=== PATIENT | male | born 1975 | race Hispanic/Latino ===

== ENCOUNTER 2016-07-20 13:32 | Inpatient (IN) | payer MEDICAID ==
[~2016-07-20] VITALS: Ht 180.3 cm; Wt 76.8 kg
[2016-07-20] VITALS (10 sets, daily range): BP systolic 103–126; BP diastolic 57–71; PULSE 65–75; RESP 12–16; O2SAT 95–100
[~2016-07-20 13:32] MED LIST: HYDROmorphone 2 mg/mL Inj ONE; Lidocaine PF 1% 30 mL Inj ONE; Propofol 10,000 mCg/mL 20 mL Inj ONE; Vancomycin Inj 1,500 MG in 0.9% Sodium Chloride 500 ML IV SCH; fentaNYL-PF 50 mCg/mL 2 mL Inj ONE
--- NOTE | 2016-07-20 15:51 | NUR ---
admitted to room [address] [facility] ED per ambulance. alert, VSS, very large swelling/abscess on left buttocks, area of erythema marked
[2016-07-20] MEDS ORDERED: no historical meds (16:02)
--- NOTE | 2016-07-20 19:20 | CONS ---
[address] [address] CONSULTATION REPORT PATIENT: KINJAL HARDWICK : 1975 MR#: [id number] ADMIT: 07/20/2016 JOB ID: [id number] DATE OF SERVICE: 07/20/2016 CHIEF COMPLAINT: This is a 41-year-old man with a left buttock abscess. This consultation was requested by Dr. Marcial of the Emergency Department at [facility] in [place]. HISTORY OF PRESENT ILLNESS: This is a 41-year-old man with a history of intramuscular heroin injection who presented to [facility] earlier today with a large fluctuant abscess of the left buttock. White blood cell count of 12. He reports that he last used heroin about one month ago. I was told by the emergency department physician at that institution that their operating rooms are closed this week and that he would require transfer for operative intervention. The abscess measured 11 cm in diameter. PAST MEDICAL HISTORY: History of MRSA abscess on the left leg. PAST SURGICAL HISTORY: Laparoscopic cholecystectomy, left shoulder surgery, incision and drainage of multiple abscesses including two previous incisions and drainages of the left buttock. MEDICATIONS: He does not take chronic medications but he had some leftover Keflex and vancomycin which he has been taking for the last several days. ALLERGIES: TORADOL, CODEINE, ZOFRAN. FAMILY HISTORY: His father had pancreatic cancer. SOCIAL HISTORY: He denies current tobacco, alcohol, or recreational drug use. He reports that he last used heroin approximately one month ago. He lives in [place] with his father. He is unemployed. REVIEW OF SYSTEMS: Eleven point review of systems is positive for left buttock pain and is otherwise negative. PHYSICAL EXAMINATION: Temperature 36.2, heart rate 65, blood pressure 103/57, respiratory rate of 16, saturation 100% on room air. General: Awake, alert, no acute distress. Head: Normocephalic. Neck: Supple. Cardiac: Regular rate and rhythm, no murmurs, rubs, or gallops. Respiratory: Clear to auscultation bilaterally. Abdomen: Soft. Musculoskeletal: The left buttock has a large fluctuant mass consistent with abscess. It is very tender. There are overlying incisions from previous incisions and drainages. Neurologic: No gross deficits. Psychiatric: Normal cognition and judgment. LABORATORY DATA: CBC at [facility] from today show white blood cell count of 12, hematocrit 27, platelets 669. Basic metabolic panel is within normal limits including creatinine 1.0 and glucose 105. IMAGING: According to the nursing notes that were sent from [facility], the patient had a CT scan. However, the report, physician note from the emergency department, and images were not sent with the patient. ASSESSMENT: A 41-year-old man with a history of IV and intramuscular drug use, as well as history of MRSA abscesses in multiple locations on his body requiring incision and drainage, who presents with an 11 cm left buttock abscess. PLAN: I recommend incision and drainage in the operating room today. Antibiotics were administered at [facility]. He will remain n.p.o. and antibiotics will be continued in the hospital. I recommend a wound care consult in the morning.
[2016-07-20] MEDS: Lactated Ringer's 1,000 ML IV SCH ×2 (19:31→19:45)
[2016-07-20] MEDS ORDERED: Ondansetron 2 mg/mL 2 mL Inj IVPUSH PRN ×2 (19:35→20:35)
[2016-07-20] MEDS ORDERED: Polyethylene Glycol (PEG) 17 Gm Powder PO PRN (19:35)
[2016-07-20] MEDS ORDERED: Alum-Mag Hydrox-Simeth 30 mL Suspension PO PRN (19:35)
--- NOTE | 2016-07-20 19:44 | PCM.HPMED ---
Subjective Date of Service Jul 20, 2016 Primary Provider: Admitting Physician: Edson Ferguson MD Primary Care Physician: Nopcp Attending Physician: Edson Ferguson MD Chief Complaint: buttock abscess History of Present Illness: 41 years old with past medical history of IVDA , MRSA skin infection, presented to [facility] with a buttock abscess. This is the 3rr time he has it he said the last time he was drain at a different hospital. He does not have an accurate recollection of where and when . In any case at [facility] CT scan a large 11 cms fluctuating abscess . Due to unavailability of surgeon at [facility] , patient is transferred here appropriate care . He has no complaint of chest pain, shortness of breath. Subjective fever, no chills. He stated the last time he use drug is a month ago or so. Review of Systems: Buttock abscess and swelling otherwise a 12 points review is negative Allergies Coded Allergies: codeine (Verified Allergy, Intermediate, hives, 07/20/16) ketorolac (Verified Allergy, Intermediate, Hives, 07/20/16) ondansetron (Verified Allergy, Intermediate, hives, 07/20/16) Home Medications None PMH IVDA, MRSA, Recurrent buttock abscess Surgical History Laparoscopic cholecystectomy, left shoulder surgery, incision and drainage of multiple abscesses including two previous incisions and drainages of the left buttock. Family History Father of pancreatic cancer Social History Hx Alcohol Use: No Hx Substance Use: No (denies all drug use) Living Arrangement: Alone Exam Vital Signs Vital Sign - Last Date Time Temp Pulse Resp B/P Pulse Ox O2 Delivery O2 Flow Rate FiO2 07/20/16 16:51 36.2 65 16 103/57 100 Room Air Exam Gen/ constitutional : Chronically ill appearing. NAD. HEENT : ISABEL Neck : Supple, trachea is midline Chest : Normal respiratory effort Lung : Clear bilaterally, no wheezing, no crackles Heart : S1S2, RR, no gallop, no murmur Abdomen : NT , benign Back : left buttock has a large fluctuant mass consistent with abscess Ext : No edema, no cyanosis Neuro : grossly intact . Lab and Diagnostics Labs Pending Assessment & Plan 1. Buttock abscess : Recurrent 2. H/o IVDA admit inpatient . Start Broad spectrum antibiotics : Zosyn and Vancomycin . Fluid expansion with NS @ 100 ml/hr for 2 days . Surgery consulted for incision and drainage . Case discussed . Consult infectious disease. This is a recurrent abscess ( X 3 per patient) . He denies using drug currently . She stated he went cold turkey 3 months ago with his heroine habit. Urine drug screen. Toradol 15 mg IV Q6h prn for pain . Avoiding narcotic may be beneficial if indeed he is of heroine . Heparin for DVT prophylaxis . CBC, CMP, PT/INR Pain Evaluation: Adequate Pain Control VTE Mechanical Devices: Intermittant Pneumatic CD Resuscitation Status: CPR: Attempt Resuscitation Time spent 55 minutes David Roblero MD Jul 20, 2016 19:44
[2016-07-20] MEDS ORDERED: Lactated Ringer's 500 ML IV PRN (19:47)
[2016-07-20] MEDS ORDERED: Lactated Ringer's 1,000 ML IV SCH (19:47)
--- NOTE | 2016-07-20 19:47 | PCM.HPANE ---
Patient Data Date of Service: Jul 20, 2016 Surgeon Admitting Provider:Edson Ferguson MD Attending Provider:Edson Ferguson MD Primary Care Physician:Nopryan Other Provider:Ervin Dailge Anesthesia Reason for Visit Abscess Left Buttock Ht/WT & BMI Height (Feet): 5 Height (Inches): 11.00 Weight (Kilograms): 75.000 Body Mass Index 23.15 Allergies Coded Allergies: codeine (Verified Allergy, Intermediate, hives, 07/20/16) ketorolac (Verified Allergy, Intermediate, Hives, 07/20/16) ondansetron (Verified Allergy, Intermediate, hives, 07/20/16) Past Anesthesia History Anesthesia History: Denies:: Anesthesia Reactions Diabetes History Hx Diabetes?: No MRSA MRSA: No Medications Hypertension Medication: No Home Meds Incl Beta Abdon: No Reported Medications [no historical meds] No Conflict Check 07/20/16 History History of ENT Problems?: No HEENT History: Denies:: Cataracts Dysphagia Glaucoma Sinus Problem Hx of Heart Problems?: No Cardiovascular History: Denies:: Cardiac Surgery Chest Pain Congestive Heart Failure Edema Heart Murmur Hypertension Pacemaker Thrombophlebitis Hx of Respiratory Problem?: No Respiratory History: Denies:: Asthma COPD Chest Surgery Dyspnea Emphysema Hemoptysis Pneumonia Tuberculosis Hx Neurologic Problems?: No Neurological History: Denies:: Alzheimer's Disease CVA Dementia Dizziness Headaches Parkinson's Disease Seizures Hx of GI Problems?: No Gastrointestinal History: Denies:: Diverticulitis Gastroesphageal Reflux Gastrointestinal Bleeding Heartburn Hepatitis (never been checked) Hiatal Hernia Rectal Bleeding Hx of Problems?: No Genitourinary History: Denies:: HX of Hemodialysis Kidney Stones Urinary Tract Infection HX of Peritoneal Dialysis: No Male Hx: Denies:: Prostate Problems Scrotal Mass Testicular Surgery Hx Musculoskeletal Problems?: No Musculoskeletal History: Denies:: Back Injury Joint Replacement Musculoskeletal Trauma Hx of Psycho/Social Problems?: No Psycho Social History: Denies:: Anxiety Bipolar Disorder Hx Depression Suicide Attempt Hx Surgeries?: Yes (see above) Hx Any Other Health Problems?: No Other History: Positive for:: Hospitalization (cholecystectomy, leg infection) Denies:: Cancer Thyroid Disease History Blood Transfusions: Positive for:: Accept Blood Products? Denies:: Blood Transfuse Reaction Blood Transfusions Hx Diabetes: No Hx Alcohol Use: NoHx Substance Use: Yes (last 1 month ago (denies all drug use to some providers). Heroin)Have You Smoked inLast 12 mo: No Stop/Bang Treated for Sleep Apnea?: No Do You Have a CPAP Machine?: No S-Snoring: Do You Snore Loudly: No T-Tired: feel tired, fatigued: No O-Obsered: Observed not breath: No P-Blood Pressure: treated: No B- Body Mass Index > 35 kg/m2: No A- Age over 50: No N- Neck Large Circumference: No G- Gender Male: Yes KARIE Total Score: 1 KARIE Risk Assessment: Low Risk, <3 Yes Risk Assessment Category Category 1A: Patient has history of documented sleep apnea, and HAS NOT received any narcotic, sedative or anesthesia administration during this stay. Category 1B: Patient has history of documented sleep apnea, and HAS received any narcotic , sedative or anesthesia administration during this stay Category 2: Patient has SUSPECTED Obstructive Sleep Apnea, and HAS received any narcotic , sedative or anesthesia administration during this stay. Category 3: Patient has SUSPECTED Obstructive Sleep Apnea and HAS NOT received narcotic, sedative or anesthesia administration during this stay. Category 4: Outpatient in Procedural Areas with known sleep apnea or who screen positive for High Risk via the STOP/BANG questionnaire. Exam Exam Vital Signs Vital Signs Date Time Temp Pulse Resp B/P Pulse Ox O2 Delivery O2 Flow Rate FiO2 07/20/16 16:51 36.2 65 16 103/57 100 Room Air General Appearance: Alert, Oriented X3, Cooperative HEENT/AIRWAY: MP 2, Neck Movement, Other (Poor dentition) Lungs: Clear to Auscultation, Normal Air Movement Heart: Regular Rate/Rhythm, Normal S1, Normal S2 Plan Impression Patient chart reviewed, patient interviewed and anesthestic plan with risks, benefits, and alternatives discussed, and informed consent obtained. NPO Status: > 8 hours ASA Physical Status: ASA2 Mod Systemic Disease Anesthetic Plan: GA Bene/Risks/Altern/Consents: Yes HP Complete Prior to Induction: Yes Fabricio Harris MD Jul 20, 2016 19:10
[2016-07-20] MEDS ORDERED: Phenylephrine 10,000 mCg/mL Inj IVPUSH PRN (19:50)
[2016-07-20] MEDS ORDERED: Dexamethasone 4 mg/mL Inj IVPUSH PRN (19:50)
[2016-07-20] MEDS ORDERED: MetoCLOpramide 5 mg/mL 2 mL Inj IVPUSH PRN ×2 (19:50→20:35)
[2016-07-20] MEDS ORDERED: EPHEDrine Sulfate 50 mg/mL Inj IVPUSH PRN (19:50)
[2016-07-20] MEDS ORDERED: Vancomycin Inj 1,500 MG in 0.9% Sodium Chloride 500 ML IV ONE (19:50)
[2016-07-20] MEDS ORDERED: fentaNYL-PF 50 mCg/mL 2 mL Inj IVPUSH PRN (19:50)
[2016-07-20] MEDS: Piperacillin-Tazo 3.375 Gm Inj 3.375 GM in Dextrose 5% Minibag Plus 50 ML IV SCH (20:00)
[2016-07-20] MEDS ORDERED: Bupivacaine 0.5%/EPI 50 mL Inj INFILTRATE ONE (20:29)
[2016-07-20] MEDS ORDERED: fentaNYL-PF 50 mCg/mL 2 mL Inj ONE (20:56)
[2016-07-20] MEDS: HYDROmorphone 1 mg/mL Inj IVPUSH PRN ×2 (21:01→21:21)
--- NOTE | 2016-07-20 21:13 | PCM.ANEP1 ---
Post Anesthesia Phase 1 PACU Phase 1 Assessment Date of Service: Jul 20, 2016 Vital Signs Vital Signs Date Time Temp Pulse Resp B/P Pulse Ox O2 Delivery O2 Flow Rate FiO2 07/20/16 21:00 75 13 125/71 98 Room Air 07/20/16 20:55 71 14 126/63 100 Simple Mask 8 07/20/16 20:50 36.4 66 15 116/64 100 Simple Mask 8 07/20/16 16:51 36.2 65 16 103/57 100 Room Air Anesthetic Administered: GA Level of Alertness: Sleepy, easy to arouse TITUS's with Equal Strength: Yes Pain: No Nausea or Vomiting: No Oxygen Delivery: Simple Mask Lungs: Normal Air Movement Fabricio Harris MD Jul 20, 2016 21:13
--- NOTE | 2016-07-20 21:19 | PCM.ANEP2 ---
Post Anesthesia Evaluation ASA/CMS Post Anesthesia Date of Service: Jul 20, 2016 VS in Patient's Normal Range?: Yes Resp Stable; Airway Patent?: Yes CV Function & Hydration Stable: Yes Mental Status Recovered?: Yes Pain control Satisfactory?: Yes N/V Control Satisfactory?: Yes Fabricio Harris MD Jul 20, 2016 21:19
--- NOTE | 2016-07-20 22:21 | PCM.CONPHA ---
Subjective Date of Service: Jul 20, 2016 buttock abscess Reason for Pharmacy Consult: Vancomycin Dosing Objective Vital Signs Date Time Temp Pulse Resp B/P Pulse Ox O2 Delivery O2 Flow Rate FiO2 07/20/16 21:35 36.7 67 16 123/66 96 Room Air 07/20/16 21:25 73 12 112/66 95 Room Air 07/20/16 21:20 36.4 70 12 110/68 96 Room Air 07/20/16 21:15 72 12 118/63 95 Room Air 07/20/16 21:13 Simple Mask 07/20/16 21:10 72 12 119/60 95 Room Air 07/20/16 21:05 71 12 120/70 95 Room Air 07/20/16 21:00 75 13 125/71 98 Room Air 07/20/16 20:55 71 14 126/63 100 Simple Mask 8 07/20/16 20:50 36.4 66 15 116/64 100 Simple Mask 8 07/20/16 16:51 36.2 65 16 103/57 100 Room Air Weight (Kilograms): 75.000 Height (Feet): 5 Height (Inches): 11.00 Assessment/Plan Assessment/Plan Vanco per Rx Indication: cellulitis, Hx of IVDA/MRSA Goal Trough : 15-20; LD 1500mg, follow by 1500mg q12h Vd 56; ePeak 38.3, eTrough 15.2 @ SS 1st trough to be drawn before the 4th dose, on 07/22 Srinivas Rodriguez PharmD Jul 20, 2016 22:21
--- NOTE | 2016-07-20 22:26 | OP ---
[address] [address] OPERATIVE REPORT PATIENT: KINJAL HARDWICK : 1975 MR#: [id number] ADMIT: 07/20/2016 JOB ID: [id number] DATE OF SURGERY: 07/20/2016 PREOPERATIVE DIAGNOSIS(ES): Left buttock abscess. POSTOPERATIVE DIAGNOSIS(ES): Deep intramuscular left buttock abscess. PROCEDURE PERFORMED: Incision and drainage of deep intramuscular buttock abscess. SURGEON: Billie Peng MD. BROKERAGE MANAGER: DIANA Chavez. HISTORY OF PRESENT ILLNESS: This is a 41-year-old man with a history of heroin use with previous MRSA infections of the subcutaneous tissue who presented to an outside hospital with a large fluctuant left buttock abscess. There was no operating room availability there, so he was transferred to this facility. White blood cell count was 12. He was consented for incision and drainage. FINDINGS: Large intramuscular buttock abscess, 12 x 12 cm in size. It was filled with purulent fluid and blood clots. A culture was sent. DESCRIPTION OF PROCEDURE: The patient was brought to the operating room and placed in supine position. General anesthesia was induced. He was repositioned into the modified right lateral decubitus. The operative field was prepped and draped in sterile fashion. A pause was performed to confirm the correct patient, procedure, site, and side. In the midportion of the left buttock was a macerated area of skin. This was opened and copious purulent fluid spilled out. The specimen was sent for culture. The cavity was explored and found to be approximately 12 cm x 12 cm in size. Due to the large size which encompassed the majority of the skin of the buttock, the decision was made to place Peterson drains for drainage rather than open the entire wound. Because the area of macerated skin was in the center of the wound, three Newcomb drains were placed extruding from this wound in a triangular fashion, the 1st directly lateral, the 2nd superomedial, and the 3rd inferomedial. 1 inch Newcomb drains were used. There were threaded through the center wound in the lateral/medial wounds and each was tied to itself with an interrupted nylon stitch. The abscess cavity was copiously irrigated with normal saline. 0.5% Marcaine with epinephrine was injected at all incision sites. Sterile dressing was placed. The patient was awakened from general anesthesia and taken to the postoperative care unit in good condition. SPECIMENS: Purulent fluid sent for culture. COMPLICATIONS: None. ESTIMATED BLOOD LOSS: 20 mL.
[2016-07-20] MEDS: Dextrose 5% Lactated Ringer's 1,000 ML IV SCH (22:31)
[2016-07-21 00:04] LABS: BASOPHILS % (AUTO) 0.2 % (0-3); EOSINOPHILS % (AUTO) 0.5 % (0-5); MONOCYTES % (AUTO) 3.5 % (4-12); Mean Corpuscular Hemoglobin 19.7 pg (27.0-35.0); Mean Corpuscular Volume 65.9 fL (81-100); NEUTROPHILS % (AUTO) 74.2 % (40-74); Platelet Count 661 bil/L (150-400)
[2016-07-21 00:27] LABS: INR 1.01 ratio
[2016-07-21 00:30] VITALS: BP 109/65; PULSE 73; RESP 16; O2SAT 99
[2016-07-21] MEDS: Heparin 5,000 Unit/mL Inj SUBQ SCH ×3 (00:30→16:48)
[2016-07-21] MEDS: Acetaminophen IV 1,000 MG in IV Premix 1 EACH IV SCH ×4 (02:30→20:30)
[2016-07-21] MEDS: Piperacillin-Tazo 3.375 Gm Inj 3.375 GM in Dextrose 5% Minibag Plus 50 ML IV SCH ×3 (04:00→20:37)
[2016-07-21] MEDS: Dextrose 5% Lactated Ringer's 1,000 ML IV SCH ×2 (04:32→13:48)
[2016-07-21] MEDS: Lactated Ringer's 1,000 ML IV SCH (05:31)
[2016-07-21 05:46] VITALS: BP 111/64; PULSE 70; RESP 16; O2SAT 97
--- NOTE | 2016-07-21 05:54 | NUR ---
IV access/ activity Patient IV infiltrated after 160ml of Vancomycin, unable to obtain IV access at this time msg left for IV as the patient states doppler often required. Pain poorly managed with current pain regiment. Tolerating diet well, denies CP, SOB, Abdominal Discomfort, and Nausea.
--- NOTE | 2016-07-21 08:25 | PCM.PNSURG ---
Subjective Visit Information: Reason for Visit Abscess Left Buttock Surgery/Surgery Date Post-Op Day # Date of Admission: Jul 20, 2016 at 15:49 Hospital Day # Subjective: Stable overnight. c/o pain. Drainage from wound is serosanguinous. Erythema improving. Objective Vital Sign- Last 8 Hours Date Time Temp Pulse Resp B/P Pulse Ox O2 Delivery O2 Flow Rate FiO2 07/21/16 05:46 36.5 70 16 111/64 97 Room Air 07/21/16 00:30 36.3 73 16 109/65 99 Room Air Intake and Output- Last 8 Hour 07/21/16 Cumulative From/Thru 07:00 07/20/16 16:19 - 07/21/16 06:07 Intake Total 1836 ml 2486 ml Output Total 1550 ml 2250 ml Balance 286 ml 236 ml Intake Oral 1673 ml 1673 ml IV Total 163 ml 813 ml Output Urine Total 1550 ml 2250 ml # Bowel Movements 0 0 General: Alert, Oriented X3, Cooperative, Mild Distress Extremities: Other (L buttock with [address], no longer fluctuant, decreasing erythema.) Result Diagram: 07/20/16 2340 07/20/16 2340 Assessment & Plan Impression POD1 I&D left buttock abscess in setting of h/o MRSA and h/o IVDU Problems: Plan Continue abx, await culture results. OK to have a general diet. F/U with me in 2 weeks for Roverto drain removal Resuscitation Status: CPR: Attempt Resuscitation Billie Peng MD Jul 21, 2016 08:25
[2016-07-21] MEDS: Vancomycin Dose per Pharmacist XX SCH (08:30)
[2016-07-21 09:23] VITALS: BP 96/60; PULSE 72; RESP 18; O2SAT 98
[2016-07-21 09:46] LABS: BASOPHILS % (AUTO) 0.2 % (0-3); EOSINOPHILS % (AUTO) 1.3 % (0-5); MONOCYTES % (AUTO) 4.6 % (4-12); Mean Corpuscular Hemoglobin 19.6 pg (27.0-35.0); Mean Corpuscular Volume 65.7 fL (81-100); NEUTROPHILS % (AUTO) 67.3 % (40-74); Platelet Count 704 bil/L (150-400)
[2016-07-21 10:17] LABS: Magnesium 2.2 mg/dL (1.6-2.6); Phosphorus 3.2 mg/dL (2.5-4.9)
--- NOTE | 2016-07-21 11:04 | PCM.PHAPRO ---
Progress buttock abscess VANCOMYCIN DOSING PER PHARMACY Note: Was told by RN that IV infiltrated last night, so initial dose of vancomycin was barely given. P: Will keep the same time since new IV was just started and next scheduled dose is due at 11:30 this morning. Retiming trough to 07/22 @2200 before the now adjusted 4th dose Pharmacy will continue to follow, thanks! Princess Nicole PharmD Jul 21, 2016 11:04
[2016-07-21] MEDS: Vancomycin Inj 1,500 MG in 0.9% Sodium Chloride 500 ML IV SCH (11:16)
--- NOTE | 2016-07-21 11:59 | CONS ---
[address] [address] CONSULTATION REPORT PATIENT: KINJAL HARDWICK : 1975 MR#: [id number] ADMIT: 07/21/2016 JOB ID: [id number] DATE OF SERVICE: 07/21/2016 INFECTIOUS DISEASE CONSULT: I thank Dr. Roblero for this timely consult. REASON FOR CONSULTATION: Large left buttock abscess in a patient who injects intramuscular heroin. HISTORY OF THE PRESENT ILLNESS: The patient is a 41-year-old gentleman with a relatively uncomplicated medical history, except for a history of nephrolithiasis, chronic left shoulder pain and history of recurrent abscesses. The patient relates that a year or two ago he was receiving opiate pain meds for his left shoulder pain and other issues and became addicted to the opiates and when could not get additional doses of oral opiates, he switched to injectable narcotics. Initially, he used intravenous narcotics but was unable to find veins and has now switched to IM injections. This has led him to at least three encounters with the hospital system in the last few months for abscesses due to injections of IM heroin. He has been hospitalized at [facility], as well as [facility]. He has been seen and undergone incision and drainage at [facility], as well as at [facility], and now this admission. This admission started yesterday when the patient was seen at [facility] with a multi-week history of progressive left buttock swelling, pain and tenderness associated with night sweats. When he was seen at [facility], they correctly assumed he had a large abscess and got a CT, which showed about a 12 cm left buttock abscess. Because there was no surgeon available to deal with the problem there, he was transferred here. Yesterday evening, Dr. Peng took him to the operating room for an extensive drainage procedure. She placed three Peterson drains in this large abscess and drained copious amounts of purulent fluid, which she sent to the lab. This morning we see the patient, and he is reporting that his pain is somewhat diminished already just by virtue of the drains but he still has considerable pain with the movement or manipulation of the left buttock or the dressing placed on the top of it. As noted, he really did not have much in the way of constitutional symptoms despite 2-4 weeks of increasing pain in that area. He does report some night sweats but no fevers or chills. Denies any weight loss. Denies any other significant constitutional symptoms and specifically, no pulmonary or GI symptoms. He reports he does not clean the skin at all before he does IM injections but he denies licking the needles. PAST MEDICAL HISTORY: 1. 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 2. Nephrolithiasis. 3. Left shoulder trauma from football as a teenager with continued pain. SOCIAL HISTORY: The patient is unemployed at this point. He lives in [place]. He does inject IM heroin, though he said he has basically quit and just relapsed once about a month ago. He denies cigarette smoking or alcohol consumption. FAMILY HISTORY: Of interest, his sister is also a parenteral heroin user and has a history of multiple abscesses. There is no family history in first-degree relatives of tuberculosis. REVIEW OF SYSTEMS: Done. The patient states he has no headache, no visual change, no sore throat, no trouble swallowing. No plaque in the mouth. No cough, shortness of breath, chest pain, nausea, vomiting, diarrhea, dysuria, or pain in any extremity. Remainder of the review of systems is completely negative. PHYSICAL EXAMINATION: Reveals an afebrile gentleman. Temperature 36.8, pulse 72, respiratory rate 18, blood pressure 96/60, saturating 98% on room air. He is awake, alert, and in no obvious distress. His mental status seems quite clear. Head without trauma or temporal wasting. Eyes without conjunctivitis. Oral cavity without thrush, hairy leukoplakia, or pharyngitis. Neck without adenopathy, and it is supple. Lungs: Clear. Cardiac tones: Regular rate and rhythm, without murmur. Abdomen soft and nontender without organomegaly or ascites. No suprapubic fullness. No Crook catheter is present. The patient was rolled over and carefully examined with the wound management nurse. His spine appears normal. The left buttock is discolored with a purplish discoloration, and three Peterson drains are present. Serosanguineous drainage is seen on the dressings over the Roundup drain. The remainder of the lower extremities is unremarkable. There is no cellulitis and no edema, and there is good perfusion of the extremities. Neurologically, the patient is intact. No skin rash is seen. The remainder of the exam is unremarkable. LABORATORIES: Include a white count yesterday of 11,000, now 9900. Normal diff. Creatinine 0.62. LFT normal. Procalcitonin less than 0.1. Blood cultures are pending from the ED last night. They are negative. We did call [facility] when he was seen there yesterday. No blood cultures or any cultures were obtained. The intraoperative culture obtained yesterday evening by Dr. Peng in the operating room had many polys, a few gram-positive cocci and a few gram-variable rods. I spoke to the [facility] this morning who indicated there is still no growth on the plates but, of course, they are only 12 hours old. IMAGING: No imaging was done here but we reviewed the imaging from [facility] which shows a 12 cm left buttock abscess. IMPRESSION: This is an intramuscular heroin user who presents with about a 2-4 week history of gradual swelling and pain in his left buttock but without much in the way of constitutional symptoms. He underwent incision and drainage last night, and a great deal of purulent fluid was obtained and sent for cultures. One would think this would be a fairly indolent organism and so, we await with interest the results of the cultures. Given the chronicity of this, one would think the patient would have fared worse if it was a virulent organism but it is worth noting he had some Keflex at home from a prior admission which he was taking on an intermittent basis which may have slowed up the progression of this if it was due to a staphylococcal or streptococcal species. RECOMMENDATIONS: 1. I agree with the vancomycin and Zosyn he is receiving now, though we will try and narrow the antibiotics down quickly. 2. The patient has a peripheral IV in his right hand, and I absolutely would not place a PICC or any central line in this patient, as I think we will be able to treat this abscess either with oral antibiotics or with long-acting IV antibiotics such as dalbavancin. 3. We await the culture of the wound, as well as the maturation of the blood cultures from this facility. 4. The patient's HIV and hep C should be checked, and we have gone ahead and ordered these tests, and told the patient we will be checking them. 5. We will continue to follow this interesting patient with you.
--- NOTE | 2016-07-21 12:46 | NUR ---
Wound Care Wound evaluation order received, pt seen at bedside with Dr Beard from ID service. 41 yo IV drug user who had his left buttock surgically I&D'd by Dr Peng yesterday. Now presents with 4 stab incisions that are approx 2 cm in length and have 3 roverto drains looped through them to facilitate drainage of a large subcutaneous abscess at his left lateral buttock, drainage is serosanguinous and moderate, no purulence is noted and a absorbent dressing is replaced over the wounds and drain then taped in place. Will recheck on this patient tomorrow, pt lives in [place] so may not be agreeable to follow up appointment at wound center but will discuss with patient prior to discharge.
[2016-07-21 13:59] VITALS: BP 111/64; PULSE 70; RESP 18; O2SAT 98
--- NOTE | 2016-07-21 14:34 | PCM.PNMED ---
Subjective Date of Service Jul 21, 2016 Subjective Patient complains of pain at surgical site. Afebrile. Status post incision and drainage. Exam Vital Signs Vital Sign - Last Date Time Temp Pulse Resp B/P Pulse Ox O2 Delivery O2 Flow Rate FiO2 07/21/16 13:59 36.8 70 18 111/64 98 Room Air 07/20/16 20:55 8 Intake and Output 07/20/16 07/20/16 07/21/16 Cumulative From/Thru 15:00 23:00 07:00 07/20/16 16:19 - 07/21/16 06:07 Intake Total 650 ml 1836 ml 2486 ml Output Total 700 ml 1550 ml 2250 ml Balance -50 ml 286 ml 236 ml Intake Oral 1673 ml 1673 ml IV Total 650 ml 163 ml 813 ml Output Urine Total 700 ml 1550 ml 2250 ml # Bowel Movements 0 0 Exam Gen/ constitutional : Chronically ill appearing. NAD. HEENT : ISABEL Neck : Supple, trachea is midline Chest : Normal respiratory effort Lung : Clear bilaterally, no wheezing, no crackles Heart : S1S2, RR, no gallop, no murmur Abdomen : NT , benign Back : left buttock status post I&D, cleanly dressed Ext : No edema, no cyanosis Neuro : grossly intact . IVs and Medications Medications Reviewed: Medications were reviewed in detail Lab and Diagnostics Result Diagram: 07/21/16 0935 07/21/16 0935 Assessment & Plan 1. Left Buttock abscess : Recurrent . Status post I&D on 07/20 -Continue Broad spectrum antibiotics : Zosyn and Vancomycin . -Plan to narrow down antibiotics quickly -Pain control with Oxycodone by mouth -ID Dr Beard and surgery Dr dyer on board -Discontinued IV fluids today. 2. H/o IVDA -HIV, HCV ordered by ID Disposition: Pending clinical course VTE Mechanical Devices: Intermittant Pneumatic CD Resuscitation Status: CPR: Attempt Resuscitation Alok Bray MD Jul 21, 2016 14:34
--- NOTE | 2016-07-21 15:56 | NUR ---
WOUND/PAIN/ACTIVITY Dressing to L buttock was removed with Dr. Peng this am. Erythema and 3 Peterson drains present. Replaced with 2 ABD pads and hypafix tape. Previous dressing was saturated with serosanguineous drainage. Patient reports pain is 9/10 to L buttock and he was unable to sleep or get comfortable last night. Administered oxycodone 10mg Q4H for pain control. Also received order for sleeping pill to help with sleep for tonight. Patient ambulating into bathroom independently with IV pole. Continue to monitor.
--- NOTE | 2016-07-21 16:33 | NUR ---
Mannequin Decorator met with patient at bedside. Patient was in agreement with meeting with [facility] and patient sign EJ. Mannequin Decorator notified [facility] patient account representative and she is meeting with the patient at bedside. SW will continue to follow and assist. Patient confirmed that he lives in [place] with his father and accepted Advance Directive [place] from Mannequin Decorator. Madelaine Dial LMSW
[2016-07-21 21:39] VITALS: BP 116/67; PULSE 66; RESP 18; O2SAT 98
[2016-07-22] MEDS: Heparin 5,000 Unit/mL Inj SUBQ SCH ×3 (00:30→16:34)
[2016-07-22] MEDS: Vancomycin Inj 1,500 MG in 0.9% Sodium Chloride 500 ML IV SCH ×2 (01:35→12:12)
[2016-07-22] MEDS: Acetaminophen IV 1,000 MG in IV Premix 1 EACH IV SCH (03:10)
[2016-07-22] MEDS: Piperacillin-Tazo 3.375 Gm Inj 3.375 GM in Dextrose 5% Minibag Plus 50 ML IV SCH ×2 (04:14→16:34)
[2016-07-22 04:35] VITALS: BP 120/74; PULSE 84; RESP 16; O2SAT 100
--- NOTE | 2016-07-22 04:44 | NUR ---
Heparin Patient refused 0030 Heparin dose, stating he would rather receive dose when awake. This RN explain the benefits and possible side effects of refusing dose. Patient accepting of this.
[2016-07-22] MEDS: Vancomycin Dose per Pharmacist XX SCH (08:23)
[2016-07-22 12:25] VITALS: BP 108/74; PULSE 70; RESP 16; O2SAT 100
--- NOTE | 2016-07-22 15:05 | PCM.PNMED ---
Subjective Date of Service Jul 22, 2016 Subjective Pain controlled, afebrile Exam Vital Signs Vital Sign - Last Date Time Temp Pulse Resp B/P Pulse Ox O2 Delivery O2 Flow Rate FiO2 07/22/16 12:25 36.7 70 16 108/74 100 Room Air 07/20/16 20:55 8 Intake and Output 07/21/16 07/21/16 07/22/16 Cumulative From/Thru 15:00 23:00 07:00 07/20/16 16:19 - 07/22/16 04:40 Intake Total 1543 ml 400 ml 4429 ml Output Total 1250 ml 1300 ml 4800 ml Balance 293 ml -900 ml -371 ml Intake Oral 806 ml 400 ml 2879 ml IV Total 737 ml 1550 ml Output Urine Total 1250 ml 1300 ml 4800 ml # Bowel Movements 0 0 Exam Gen/ constitutional : Chronically ill appearing. NAD. HEENT : ISABEL Neck : Supple, trachea is midline Chest : Normal respiratory effort Lung : Clear bilaterally, no wheezing, no crackles Heart : S1S2, RR, no gallop, no murmur Abdomen : NT , benign Back : left buttock status post I&D, cleanly dressed Ext : No edema, no cyanosis Neuro : grossly intact . IVs and Medications Medications Reviewed: Medications were reviewed in detail Lab and Diagnostics Result Diagram: 07/21/16 0907/21/16 0935 Microbiology Microbiology GAGE GS (GRAM STAIN) Final 07/20/16-2154 GRAM STAIN RESULT MANY POLYS FEW GRAM POS COCCI FEW GRAM VARIABLE RODS GAGE CULT AEROBIC Preliminary 07/22/16-1116 Requires further isolation before workup. ANAEROBIC CULTURE Preliminary 07/22/16-1011 No ANAEROBES recovered at 48 hours hold for futher observation Assessment & Plan 1. Left Buttock abscess : Recurrent . Status post I&D on 07/20 -Continue Broad spectrum antibiotics awaiting culture and sensitivity : Zosyn and Vancomycin . -Blood culture negative 2, wound Gram stain gram-positive cocci and gram variable rods,MRSA nares negative -Plan to narrow down antibiotics quickly -Pain control with Oxycodone by mouth -ID Dr Beard and surgery Dr dyer on board -Discontinued IV fluids today. 2. H/o IVDA -HIV, HCV ordered by ID Disposition: Pending clinical course VTE Mechanical Devices: Intermittant Pneumatic CD Resuscitation Status: CPR: Attempt Resuscitation Asa,Alok MD Jul 22, 2016 15:05
--- NOTE | 2016-07-22 15:15 | NUR ---
PAIN/ACTIVITY Patient states pain is better controlled with current pain regimen. Up out of bed ambulating in room and in hallway. Dressing to L buttock was changed. Wound has less drainage than yesterday and skin surrounding roverto drains is normal color of skin, no longer red. Care continues.
--- NOTE | 2016-07-22 18:16 | PCM.PNSURG ---
Subjective Visit Information: Reason for Visit Abscess Left Buttock Surgery/Surgery Date Post-Op Day # Date of Admission: Jul 20, 2016 at 15:49 Hospital Day # Subjective: Stable. Pain is improving. Objective Vital Sign- Last 8 Hours Date Time Temp Pulse Resp B/P Pulse Ox O2 Delivery O2 Flow Rate FiO2 07/22/16 12:25 36.7 70 16 108/74 100 Room Air Intake and Output- Last 8 Hour 07/22/16 Cumulative From/Thru 07:00 07/20/16 16:19 - 07/22/16 04:40 Intake Total 400 ml 4429 ml Output Total 1300 ml 4800 ml Balance -900 ml -371 ml Intake Oral 400 ml 2879 ml IV Total 1550 ml Output Urine Total 1300 ml 4800 ml # Bowel Movements 0 0 General: Alert, Oriented X3, Cooperative, No Acute Distress Extremities: Other (L buttock with several roverto drains in place. ABD pads have purulent-serous fluid on them. Erythema substantially improved.) Result Diagram: 07/21/16 0935 07/21/16 0935 Assessment & Plan Impression 41yom s/p I&D L buttock abscess 07/20/16. Doing well. Problems: Plan Continue antibiotics. Dressing changes at least BID. Follow up in my clinic 2-3 weeks after 07/20/16 for reassessment and possible drain removal. Resuscitation Status: CPR: Attempt Resuscitation Billie Peng MD Jul 22, 2016 18:16
[2016-07-22 20:45] VITALS: BP 113/61; PULSE 75; RESP 20; O2SAT 98
[2016-07-22] MEDS: Amoxicillin-Clav 875-125 mg Tablet PO SCH (22:09)
[2016-07-22] MEDS ORDERED: Vancomycin Serum Trough XX ONE (23:00)
[2016-07-23] MEDS: Heparin 5,000 Unit/mL Inj SUBQ SCH ×2 (00:30→09:46)
[2016-07-23 05:01] VITALS: BP 116/71; PULSE 60; RESP 16; O2SAT 97
--- NOTE | 2016-07-23 05:33 | NUR ---
Pain Patient accepting of PO ABX medications, states that he hopes to be able to go home. Pain managed well, able to rest through out shift. Denies CP, SOB, Abdominal discomfort. Refused late night dose of heparin. Patient also voiced concern about newly diagnosis of Hep C. This RN obtain reading material. This RN also read material to patient as he complained of inability to read small print. Main focus was prevention of spreading disease.
[2016-07-23] MEDS: Amoxicillin-Clav 875-125 mg Tablet PO SCH (09:45)
[2016-07-23] MEDS ORDERED: [UNRECOGNIZED DRUG - OTHER] XX SCH (10:05)
[2016-07-23] MEDS ORDERED: [UNRECOGNIZED DRUG - OTHER] XX ONE (10:31)
[2016-07-23] MEDS ORDERED: Dalbavancin Inj 1,500 MG in Dextrose 5% 500 ML IV ONE (10:35)
--- NOTE | 2016-07-23 11:24 | PCM.DIMED ---
Discharge Instructions Date of Service Jul 23, 2016 Dates of Hospitalization Jul 20, 2016 at 15:49 Discharge Diagnosis Discharge Diagnosis 1. Left Buttock abscess : Recurrent . Status post I&D on 07/20 2. H/o IVDA Diet No restrictions Activity No restrictions, Other (as tolerated ) Patient Instructions You were hospitalized due to left buttock abscess. You underwent incision and drainage on 07/20/16. You had been treated with IV antibiotics. You are given Dalvance ( long-acting antibiotic). Please follow-up with surgeon Dr Peng in 2 weeks for removal of drain. Please follow-up as wound care for dressing change daily. Follow-up plan Please follow-up with in 2 weeks . Please follow-up with PCP 1-2 weeks. Follow-up with PCP in: 1 week Provider: Billie Peng MD Follow-up in: 2 weeks Mid-level Provider (F9): [facility] Follow-up with Mid-level in: 1 week (2 days ) Alok Bray MD Jul 23, 2016 11:24
[2016-07-23] MEDS ORDERED: OXYC-474 PO (11:25)
--- NOTE | 2016-07-23 11:26 | NUR ---
Social Work- Readiness for Discharge Data: EMR reviewed. Pt is on day3 of hospitalization for abscess left buttock per H&P. Pt is not medically stable, anticipate discharge later today. Wound Care continues to follow patient. Pt to discharge on oral abx. SW followed up with pt regarding discharge plan. Pt informed SW of questions related to [facility] Medicaid coverage, SW encouraged pt to follow up regarding this after discharge as it is the weekend. Pt's father to transport to additional follow up appointments. Pt to discharge home with his father to transport via POV. No anticipated discharge needs. SW will continue to follow. Assessment: [place]. Plan: Pt to discharge home with his father to transport via POV. No anticipated discharge needs. SW will continue to follow. PATRICK Dubose
--- NOTE | 2016-07-23 11:52 | NUR ---
IV attempts This RN attempted two times on the right arm and was not able to locate any other veins big enough to attempt an IV on his left arm and nothing on the feet. Nii Henson RN Addendum: 07/23/16 at 1157 by SLIM HENSON RN I informed the patients RN of my findings and she called Dr. Bray and reported my findings. Nii Henson RN
--- NOTE | 2016-07-23 13:28 | NUR ---
Social Work- Discharge Data: EMR reviewed. Pt is on day 3 of hospitalization for abscess left buttock per H&P. Pt to discharge today. Pt to discharge on oral abx. Pt to discharge home with his father to transport via POV. No discharge needs. Assessment: [place]. Plan: Pt to discharge home with his father to transport via POV. No discharge needs. PATRICK Dubose
--- NOTE | 2016-07-23 14:17 | PCM.EDPN ---
ED Note Date of Service Jul 23, 2016 I was asked to come to the patient's bedside this morning in order to place an external jugular venous catheter. Basic and standard clean technique was used. I attempted bilateral external jugular venous catheters unsuccessfully. Keegan Burroughs DO Jul 23, 2016 14:17
--- NOTE | 2016-07-23 14:38 | PCM.DC.MED ---
Discharge Summary Date of Service Jul 23, 2016 Dates of Hospitalization Date of Hospital Admission Jul 20, 2016 at 15:49 Date of Discharge: Jul 23, 2016 Providers: Admitting Physician: Edson Ferguson MD Primary Care Physician: Nopcp Attending Physician: Edson Ferguson MD Diagnosis at Time of Discharge Diagnosis at Time of Discharge 1. Left Buttock abscess : Recurrent . Status post I&D on 07/20 2. H/o IVDA Consultations ID Dr Peng ID Dr Beard Procedures Invasive Procedures DATE OF SURGERY: 07/20/2016 PREOPERATIVE DIAGNOSIS(ES): Left buttock abscess. POSTOPERATIVE DIAGNOSIS(ES): Deep intramuscular left buttock abscess. PROCEDURE PERFORMED: Incision and drainage of deep intramuscular buttock abscess. SURGEON: Billie Peng MD. CHIEF OF INTERNAL MEDICINE: DIANA Chavez. HISTORY OF PRESENT ILLNESS: This is a 41-year-old man with a history of heroin use with previous MRSA infections of the subcutaneous tissue who presented to an outside hospital with a large fluctuant left buttock abscess. There was no operating room availability there, so he was transferred to this facility. White blood cell count was 12. He was consented for incision and drainage. FINDINGS: Large intramuscular buttock abscess, 12 x 12 cm in size. It was filled with purulent fluid and blood clots. A culture was sent. DESCRIPTION OF PROCEDURE: The patient was brought to the operating room and placed in supine position. General anesthesia was induced. He was repositioned into the modified right lateral decubitus. The operative field was prepped and draped in sterile fashion. A pause was performed to confirm the correct patient, procedure, site, and side. In the midportion of the left buttock was a macerated area of skin. This was opened and copious purulent fluid spilled out. The specimen was sent for culture. The cavity was explored and found to be approximately 12 cm x 12 cm in size. Due to the large size which encompassed the majority of the skin of the buttock, the decision was made to place [place] drains for drainage rather than open the entire wound. Because the area of macerated skin was in the center of the wound, three [place] drains were placed extruding from this wound in a triangular fashion, the 1st directly lateral, the 2nd superomedial, and the 3rd inferomedial. 1 inch [place] drains were used. There were threaded through the center wound in the lateral/medial wounds and each was tied to itself with an interrupted nylon stitch. The abscess cavity was copiously irrigated with normal saline. 0.5% Marcaine with epinephrine was injected at all incision sites. Sterile dressing was placed. The patient was awakened from general anesthesia and taken to the postoperative care unit in good condition. SPECIMENS: Purulent fluid sent for culture. COMPLICATIONS: None. ESTIMATED BLOOD LOSS: 20 mL. Billie Peng MD 07/20/162037 <Electronically signed by Billie Peng MD> 07/22/16 0002 Brief History per HPI by Dr Roblero on 07/20/16 41 years old with past medical history of IVDA , MRSA skin infection, presented to [facility] with a buttock abscess. This is the 3rr time he has it he said the last time he was drain at a different hospital. He does not have an accurate recollection of where and when . In any case at [place] CT scan a large 11 cms fluctuating abscess . Due to unavailability of surgeon at [facility] , patient is transferred here appropriate care . He has no complaint of chest pain, shortness of breath. Subjective fever, no chills. He stated the last time he use drug is a month ago or so. Hospital Course 1. Left Buttock abscess : Recurrent . Status post I&D on 07/20 -treated with Broad spectrum antibiotics : Zosyn and Vancomycin . Gave a dose of Dalbancin 1.5 gm x1 given concern of noncompliance for oral agents -Blood culture negative 2, wound Gram stain gram-positive cocci and gram variable rods,MRSA nares negative ,wound cx grows staph anginosus pansensitive -Pain control with Oxycodone by mouth -ID Dr Beard and surgery Dr peng on board -Discontinued IV fluids -advised to follow up with wound clinic for wound care and dressing change daily.advised to see Dr Peng in 1-2 weeks for drain removal 2. 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 NAD. HEENT : ISABEL Neck : Supple, trachea is midline Chest : Normal respiratory effort Lung : Clear bilaterally, no wheezing, no crackles Heart : S1S2, RR, no gallop, no murmur Abdomen : NT , benign Back : left buttock status post I&D, cleanly dressed Ext : No edema, no cyanosis Neuro : grossly intact . Test 07/20/16 23:40 07/21/16 09:35 07/21/16 15:50 07/21/16 23:00 Prothrombin Time 10.8sec (8.1-12.5) Prothromb Time International Ratio 1.01ratio White Blood Count 9.9th/mm3 (3.8-10.1) Red Blood Count 3.88mil/mm3 (4.40-5.80) Hemoglobin 7.6g/dL (13.8-17.2) Hematocrit 25.5% (41.0-50.0) Mean Corpuscular Volume 65.7fL (81-100) Mean Corpuscular Hemoglobin 19.6pg (27.0-35.0) Mean Corpuscular Hemoglobin Concent 29.8% (32.0-37.0) Red Cell Distribution Width 17.4% (12.3-15.4) Platelet Count 704bil/L (150-400) Neutrophils (%) (Auto) 67.3% (40-74) Lymphocytes (%) (Auto) 26.6% (14-46) Monocytes (%) (Auto) 4.6% (4-12) Eosinophils (%) (Auto) 1.3% (0-5) Basophils (%) (Auto) 0.2% (0-3) Sodium Level 138mEq/L (134-144) Potassium Level 4.5mEq/L (3.5-5.2) Chloride Level 101mEq/L (97-108) Carbon Dioxide Level 23mmol/L (18-29) Blood Urea Nitrogen 9mg/dL (6-24) Creatinine 0.62mg/dL (0.76-1.27) Estimat Glomerular Filtration Rate 150mL/min (>59) Glucose Level 120mg/dL (60-99) Calcium Level 8.4mg/dL (8.5-10.1) Phosphorus Level 3.2mg/dL (2.5-4.9) Magnesium Level 2.2mg/dL (1.6-2.6) Total Bilirubin 0.3mg/dL (0.0-1.2) Aspartate Amino Transf (AST/SGOT) 16U/L (0-50) Alanine Aminotransferase (ALT/SGPT) 13U/L (0-44) Alkaline Phosphatase 121U/L (25-150) Total Protein 8.1g/dL (6.4-8.4) Albumin 3.1g/dL (3.4-5.0) Procalcitonin 0.07ng/mL (0.00-0.08) Hepatitis A Antibody Total Negative (Negative) Hepatitis B Surface Antigen Negative (Negative) Hepatitis B Surface Antibody Non reactive (.) Hepatitis B Core Total Antibody Negative (Negative) Hepatitis C Antibody >11.0s/co ratio HIV (1&2) Ag and Ab, 4th Generation Non reactive (Non Reactive) Hold Red Top Tube Received (Received) Test 07/22/16 23:05 Vancomycin Level Trough 13.1mcg/mL Microbiology Results Microbiology GAGE GS (GRAM STAIN) Final 07/20/16 GRAM STAIN RESULT MANY POLYS FEW GRAM POS COCCI FEW GRAM VARIABLE RODS GAGE CULT AEROBIC Preliminary 07/22/16-1116 Requires further isolation before workup. ANAEROBIC CULTURE Preliminary 07/22/16-1011 No ANAEROBES recovered at 48 hours hold for futher observation Microbiology GAGE GS (GRAM STAIN) Final 07/20/16 GRAM STAIN RESULT MANY POLYS FEW GRAM POS COCCI FEW GRAM VARIABLE RODS GAGE CULT AEROBIC Preliminary 07/23/16-1403 Organism 1 STREPTOCOCCUS ANGINOSUS COLONY COUNT/QUANTITY MODERATE GROWTH SENSITIVITY COMMENTS Susceptibilty testing to follow. STREPTOCOCCUS ANGINOSUS SPECIES ANGINOSUS 1. STREPTOCOCCUS ANGINOSUS M.I.C Interp --------- ------ * CEFOTAXIME 0.25 S * CEFTRIAXONE 0.25 S * CLINDAMYCIN <=0.25 S * LEVOFLOXACIN <=0.25 S * PENICILLIN-G <=0.06 S * VANCOMYCIN 0.5 S ANAEROBIC CULTURE Preliminary 07/23/16-0940 No ANAEROBES recovered at 48 hours hold for futher observation Discharge Medications As needed Oxycodone (Roxicodone) 5 Mg Tablet 10 MG PO Q4H PRN PRN For Pain Prescribed by: ALOK BRAY MD Followup Plan Disposition: home Follow-up plan Please follow-up with in 2 weeks . Please follow-up with PCP 1-2 weeks. Discharge Diet: No restrictions Discharge Activity: No restrictions, Other (as tolerated ) Patient Instructions You were hospitalized due to left buttock abscess. You underwent incision and drainage on 07/20/16. You had been treated with IV antibiotics. You are given Dalvance ( long-acting antibiotic). Please follow-up with surgeon Dr Peng in 2 weeks for removal of drain. Please follow-up as wound care for dressing change daily. Follow-up with PCP in: 1 week Provider: Billie Peng MD Follow-up in: 2 weeks Mid-level Provider: CARE DARINEL,WOUND Follow-up with Mid-level in: 1 week (2 days ) Time spent 35 minutes coordinating discharge copies to: SUSIE TENA,WOUND Alok Bray MD Jul 23, 2016 14:38
--- NOTE | 2016-07-23 19:37 | NUR ---
Discharge Patient discharged home with father. Patient given iv antibiotic prior to discharge. Patient extremely difficult iv start, several attempts bu iv therapy for peripheral adn several attempts by anesthesia to place external juggler for infusion. Iv therapy did find a vein in left upper biceps. Patient will follow up with wound care center on Monday for dressing changes. Dressing to left buttock changed prior to discharge. Script for pain med given to patient .
== END 2016-07-23 15:20 | disposition home or self-care (01) | DRG 502 ==
LOC: OBSVTOIN 15:49 → OSC 15:49 → INTOOBSV 07-21 11:16 → OBSVTOIN 07-21 11:16
PROVIDERS: ADMIT Hospitalist; ATTEND Internal Medicine
PROC: 0K9P0ZZ Drainage of Left Hip Muscle, Open Approach (ICD-10-PCS; principal; 2016-07-20 18:45)
DX: M60.08 Infective myositis, other site (principal); Z86.14 Personal history of Methicillin resistant Staphylococcus aureus infection; Z87.898 Personal history of other specified conditions